=== PATIENT | male | born 1960 | race African-American/Black ===

== ENCOUNTER 2022-07-29 06:01 | Day surgery (SDC) | payer MEDICARE, MEDICAID ==
[2022-07-28 10:51] VITALS: BMI 27.9
[2022-07-29] MEDS ORDERED: Ketamine 50 MG/ML (10ML VIAL) ONE (07:25)
[2022-07-29] MEDS ORDERED: PROPOFOL 200 MG/20 ML VIAL ONE (08:03)
[2022-07-29] MEDS ORDERED: Glycopyrrolate 0.2 MG/ML 5 ML SYRINGE ONE (08:03)
== END 2022-07-29 12:15 | disposition home or self-care (01) ==
LOC: EDBD → SDC 06:01
PROVIDERS: ATTEND Internal Medicine Gastroenterology
PROC: 0DBL8ZZ Excision of Transverse Colon, Via Natural or Artificial Opening Endoscopic (ICD-10-PCS; principal; 2022-07-29)
DX: Z12.11 Encounter for screening for malignant neoplasm of colon (principal); D12.3 Benign neoplasm of transverse colon; G40.909 Epilepsy, unspecified, not intractable, without status epilepticus; F99 Mental disorder, not otherwise specified; M81.0 Age-related osteoporosis without current pathological fracture; Z79.899 Other long term (current) drug therapy
CPT/HCPCS: 88305; J2704